=== PATIENT | male | born 1965 | race Two or more races ===

== ENCOUNTER 2019-03-29 11:04 | Emergency (ER) | payer MEDICAID, OTHER ==
[~2019-03-29] VITALS: Ht 167.6 cm; Wt 94.3 kg
[2019-03-29] MEDS ORDERED: SODIUM CHLORIDE 0.9% 1,000 ML IV ONE (11:16)
[2019-03-29 11:59] LABS: Basophils # (auto) 0.1 uL; Basophils % (auto) 0.7 % (0.0-2.0); Eosinophils # (auto) 0.3 uL; Eosinophils % (auto) 3.6 % (0.0-7.0); Hematocrit 41.6 % (41.0-53.0); Hemoglobin 14.4 g/dL (13.5-17.5); Lymphocytes # (auto) 3.7 uL; Lymphocytes % (auto) 39.2 % (10.0-50.0); Mean Corpuscular Hemoglobin 31.6 pg (28.0-32.0); Mean Corpuscular Hgb Conc. 34.5 g/dL (32.0-36.0); Mean Corpuscular Volume 91.8 fL (80.0-100.0); Monocytes # (auto) 0.7 uL; Monocytes % (auto) 7.6 % (0.0-12.0); Neutrophils # (auto) 4.6 uL; Neutrophils % (auto) 48.9 % (37.0-80.0); Nucleated Red Blood Cells % 0.2 %; Platelet Count (auto) 301 10^3/uL (140-450); Red Blood Cells 4.54 10^6/uL (4.5-5.90); Red Cell Distribution Width 12.7 % (11.8-14.3); White Blood Cell 9.3 10^3/uL (4.4-10.8)
[2019-03-29 12:29] LABS: Albumin 3.8 g/dL (3.4-5.0); Anion Gap 8 (5-15); Blood Urea Nitrogen 23 mg/dL (7-18); Calcium 8.9 mg/dL (8.5-10.1); Carbon Dioxide 28 mmol/L (21-32); Chloride 101 mmol/L (98-107); Glucose 274 mg/dL (74-106); Potassium 3.4 mmol/L (3.5-5.1); Sodium 137 mmol/L (136-145)
[2019-03-29 12:34] LABS: Alanine Aminotransferase 30 U/L (16-61); Alkaline Phosphatase 55 U/L (45-117); Aspartate Aminotransferase 10 U/L (15-37); BUN/Creatinine Ratio 24.7; Bilirubin, Total 0.4 mg/dL (0.2-1.0); GFR African American 108 mL/min; GFR Non-African American 90 mL/min; Total Protein 6.9 g/dL (6.4-8.2)
[2019-03-29 13:55] LABS: Urine Bacteria NONE SEEN /hpf (None Seen); Urine Blood Negative /uL (Negative); Urine Specific Gravity 1.032 (1.001-1.035); Urine WBC 1 /hpf (0 - 3)
[2019-03-29 14:48] VITALS: BP 123/74
== END 2019-03-29 14:56 | disposition home or self-care (01) ==
LOC: ER 11:04
DX: E11.65 Type 2 diabetes mellitus with hyperglycemia (principal); E78.5 Hyperlipidemia, unspecified
CPT/HCPCS: 36415; 80053; 81001; 82962; 83036; 84484; 85025; 93005; 94761; 99284; J7030

== ENCOUNTER 2020-01-23 00:01 | Inpatient (IN) | payer MEDICAID ==
[~2020-01-23] VITALS: Ht 165.1 cm; Wt 93.2 kg
[2020-01-23 00:50] LABS: Basophils # (auto) 0.1 uL; Basophils % (auto) 0.9 % (0.0-2.0); Eosinophils # (auto) 0.2 uL; Eosinophils % (auto) 3.4 % (0.0-7.0); Hematocrit 43.7 % (41.0-53.0); Hemoglobin 14.8 g/dL (13.5-17.5); Lymphocytes # (auto) 2.9 uL; Lymphocytes % (auto) 42.3 % (10.0-50.0); Mean Corpuscular Hemoglobin 31.4 pg (28.0-32.0); Mean Corpuscular Hgb Conc. 33.8 g/dL (32.0-36.0); Monocytes # (auto) 0.7 uL; Monocytes % (auto) 9.9 % (0.0-12.0); Neutrophils % (auto) 43.5 % (37.0-80.0); Nucleated Red Blood Cells % 0.1 %; Platelet Count (auto) 251 10^3/uL (140-450); Red Cell Distribution Width 13.1 % (11.8-14.3); White Blood Cell 6.9 10^3/uL (4.4-10.8)
[2020-01-23 01:07] LABS: Alanine Aminotransferase 28 U/L (16-61); Albumin 3.7 g/dL (3.4-5.0); Anion Gap 6 (5-15); Aspartate Aminotransferase 12 U/L (15-37); BUN/Creatinine Ratio 23.6; Blood Urea Nitrogen 17 mg/dL (7-18); Calcium 8.6 mg/dL (8.5-10.1); Carbon Dioxide 25 mmol/L (21-32); Chloride 107 mmol/L (98-107); GFR African American 146 mL/min; GFR Non-African American 120 mL/min; Glucose 135 mg/dL (74-106); Potassium 3.4 mmol/L (3.5-5.1); Sodium 138 mmol/L (136-145)
[2020-01-23 01:15] LABS: Alkaline Phosphatase 60 U/L (45-117); Bilirubin, Total 0.3 mg/dL (0.2-1.0); Total Protein 7.2 g/dL (6.4-8.2)
[2020-01-23] MEDS ORDERED: SODIUM CHLORIDE 0.9% 500 ML IV ONE (02:45)
[2020-01-23 03:25] LABS: INR 1.22 (0.9-1.15); Partial Thromboplastin Time 28.6 sec (23.64-32.05)
[2020-01-23] MEDS ORDERED: DIGOXIN (250MCG/ML) 2 ML AMPULE IV ONE (03:45)
[2020-01-23] MEDS ORDERED: SODIUM CHLORIDE 0.9% 1,000 ML IV SCH (07:59)
[2020-01-23] MEDS ORDERED: NITROGLYCERIN 0.4 MG SL TAB SL PRN (08:00)
[2020-01-23] MEDS: InsuLIN REG 1unit/0.01ml Soln (100units/ml) SC SCH ×5 (08:00→23:51)
[2020-01-23] MEDS ORDERED: MORPHINE SULF INJ 2 MG/ML SYRINGE 1ML IV PRN (08:00)
[2020-01-23] MEDS ORDERED: DEXTROSE (50%) 50ML SYRG IV PRN (08:00)
[2020-01-23 08:33] LABS: Cholesterol 97 mg/dL (< 200)
[2020-01-23 08:36] LABS: HDL Cholesterol 37 mg/dL (40-59); LDL Cholesterol 50 mg/dL (< 100); Triglycerides 95 mg/dL (< 150)
[2020-01-23] MEDS: ACCU-CHEK COMFORT CURVE STRIP VI SCH ×5 (08:44→23:51)
[2020-01-23 12:25] VITALS: BP 121/82
[2020-01-23] MEDS: METOPROLOL TARTRATE 25 MG TAB PO SCH ×2 (13:13→22:20)
[2020-01-23] MEDS ORDERED: METF-370 PO (19:08)
[2020-01-23] MEDS ORDERED: ATOR20TA50 PO (19:08)
[2020-01-23] MEDS ORDERED: ALOG1TAB2 PO (19:10)
[2020-01-23] MEDS ORDERED: ASPI-492 PO (19:10)
[2020-01-23] MEDS ORDERED: MAGNESIUM SULFATE 1GM/100ML 100 ML IV ONE (20:30)
[2020-01-23] MEDS ORDERED: POTASSIUM CHL 20MEQ/100ML 100 ML IV ONE (20:30)
[2020-01-23 22:00] VITALS: BP 112/65
[2020-01-23] MEDS: SODIUM CHLORIDE 0.9% 1,000 ML IV SCH (22:14)
[2020-01-23] MEDS: ENOXAPARIN SOD 100 MG/1 ML SYRINGE SC SCH (22:21)
[2020-01-24] MEDS: InsuLIN REG 1unit/0.01ml Soln (100units/ml) SC SCH ×4 (04:00→16:00)
[2020-01-24] MEDS: ACCU-CHEK COMFORT CURVE STRIP VI SCH ×4 (04:29→16:00)
[2020-01-24 05:37] VITALS: BP 102/70
[2020-01-24] MEDS: SODIUM CHLORIDE 0.9% 1,000 ML IV SCH ×2 (05:44→13:04)
[2020-01-24 07:36] LABS: Basophils # (auto) 0 10 ^3/uL (0-0.2); Basophils % (auto) 0.6 % (0.0-2.0); Eosinophils # (auto) 0.1 10 ^3/uL (0-0.8); Eosinophils % (auto) 2.9 % (0.0-7.0); Hematocrit 38.7 % (41.0-53.0); Hemoglobin 13.5 g/dL (13.5-17.5); Lymphocytes % (auto) 39.8 % (10.0-50.0); Mean Corpuscular Hemoglobin 32.6 pg (28.0-32.0); Mean Corpuscular Hgb Conc. 34.8 g/dL (32.0-36.0); Mean Corpuscular Volume 93.8 fL (80.0-100.0); Monocytes # (auto) 0.5 10 ^3/uL (0-1.3); Neutrophils # (auto) 2.3 10 ^3/uL (1.6-8.6); Neutrophils % (auto) 46.7 % (37.0-80.0); Nucleated Red Blood Cells % 0.1 %; Platelet Count (auto) 212 10^3/uL (140-450); Red Blood Cells 4.13 10^6/uL (4.5-5.90); White Blood Cell 4.9 10^3/uL (4.4-10.8)
[2020-01-24 07:55] LABS: BUN/Creatinine Ratio 19.7; Calcium 8.1 mg/dL (8.5-10.1)
[2020-01-24] MEDS ORDERED: ADENOSINE 78 MG in GIVE UN-DILUTED 0 ML IV STA (08:39)
[2020-01-24 09:00] VITALS: BP 106/64
[2020-01-24] MEDS: ENOXAPARIN SOD 100 MG/1 ML SYRINGE SC SCH (10:00)
[2020-01-24] MEDS ORDERED: ASPirin-EC 81 mg tab PO SCH (10:00)
[2020-01-24] MEDS ORDERED: ATORVASTATIN 20 MG TAB PO SCH (10:00)
[2020-01-24] MEDS ORDERED: PANTOPRAZOLE 40 MG/10 ML VIAL INJ IV SCH (10:00)
[2020-01-24 12:10] VITALS: BP 119/62
[2020-01-24] MEDS: METOPROLOL TARTRATE 25 MG TAB PO SCH (13:02)
[2020-01-24 17:00] VITALS: BP 110/56
[2020-01-24] MEDS ORDERED: RIVSET PO (18:07)
[2020-01-24] MEDS ORDERED: METO25TA36 PO (18:07)
[2020-01-24 18:34] VITALS: BP 110/56
== END 2020-01-24 19:00 | disposition home or self-care (01) | DRG 201 ==
LOC: ER 00:02 → TELE 00:03 → TELE-CENTR 10:28
PROVIDERS: ADMIT Hospitalist; ATTEND Internal Medicine
DX: I48.0 Paroxysmal atrial fibrillation (principal); E11.65 Type 2 diabetes mellitus with hyperglycemia; I11.9 Hypertensive heart disease without heart failure; E66.9 Obesity, unspecified; E78.5 Hyperlipidemia, unspecified; E87.6 Hypokalemia; Z68.34 Body mass index [BMI] 34.0-34.9, adult; Z79.01 Long term (current) use of anticoagulants
CPT/HCPCS: 36415; 71045; 78452; 80048; 80053; 80061; 82962; 83036; 83735; 83880; 84484; 85025; 85610; 85730; 93005; 93017; 93306; 96361; 96374; G0378; J0153; J1815; J3480

== ENCOUNTER 2023-09-28 15:23 | Emergency (ER) | payer MEDICAID ==
[~2023-09-28] VITALS: Ht 167.6 cm; Wt 92.2 kg
[~2023-09-28 15:23] MED LIST: ALOG1TAB2 PO; ASPI-492 PO; ATOR20TA50 PO; CEPH500C PO; METF-370 PO; METO25TA36 PO; RIVSET PO
[2023-09-28 16:28] LABS: Basophils # (auto) 0 10 ^3/uL (0-0.2); Basophils % (auto) 0.6 % (0.0-2.0); Eosinophils # (auto) 0.2 10 ^3/uL (0-0.8); Eosinophils % (auto) 2.3 % (0.0-7.0); Hematocrit 41.8 % (41.0-53.0); Hemoglobin 14.1 g/dL (13.5-17.5); Lymphocytes # (auto) 1.5 10 ^3/uL (0.4-5.4); Lymphocytes % (auto) 21.2 % (10.0-50.0); Mean Corpuscular Hemoglobin 31.6 pg (28.0-32.0); Mean Corpuscular Hgb Conc. 33.9 g/dL (32.0-36.0); Mean Corpuscular Volume 93.2 fL (80.0-100.0); Monocytes # (auto) 0.4 10 ^3/uL (0-1.3); Monocytes % (auto) 5.5 % (0.0-12.0); Neutrophils # (auto) 4.9 10 ^3/uL (1.6-8.6); Neutrophils % (auto) 70.4 % (37.0-80.0); Nucleated Red Blood Cells % 0.1 %; Red Blood Cells 4.48 10^6/uL (4.5-5.90); Red Cell Distribution Width 12.9 % (11.8-14.3)
[2023-09-28 16:43] LABS: Alanine Aminotransferase 26 U/L (7-40); Albumin 4.7 g/dL (3.2-4.8); Alkaline Phosphatase 70 U/L (46-116); Anion Gap 8 (5-15); Aspartate Aminotransferase 16 U/L (13-40); BUN/Creatinine Ratio 9.6 (10.0-20.0); Bilirubin, Total 0.4 mg/dL (0.2-1.0); Blood Urea Nitrogen 9 mg/dL (9-23); Calcium 9.5 mg/dL (8.7-10.4); Carbon Dioxide 27 mmol/L (20-30); Chloride 104 mmol/L (98-107); Glucose 262 mg/dL (74-106); Potassium 4.3 mmol/L (3.5-5.1); Sodium 139 mmol/L (136-145); Total Protein 7.2 g/dL (5.7-8.2)
[2023-09-28 17:07] LABS: Urine WBC None Seen /hpf (0 - 3)
[2023-09-28 17:22] LABS: Urine Bacteria NONE SEEN /hpf (None Seen); Urine Blood Negative /uL (Negative); Urine Clarity Clear (Clear); Urine Color Yellow (Yellow); Urine Protein, UAD Negative (Negative); Urine Specific Gravity 1.022 (1.001-1.035); Urine Urobilinogen Normal (Negative)
[2023-09-28] MEDS ORDERED: FLEET ENEMA(ADULT) 135 ML PR ONE (17:30)
[2023-09-28] MEDS ORDERED: BISACODYL 10 MG RECT SUPP PR ONE (17:30)
[2023-09-28 22:25] VITALS: BP 108/59; PULSE 81; RESP 13; TEMP 98.7; O2SAT 98
== END 2023-09-28 22:30 | disposition home or self-care (01) ==
LOC: ER 15:23
DX: K59.00 Constipation, unspecified (principal); K62.89 Other specified diseases of anus and rectum; E11.9 Type 2 diabetes mellitus without complications; Z79.82 Long term (current) use of aspirin; Z79.84 Long term (current) use of oral hypoglycemic drugs; Z79.899 Other long term (current) drug therapy
CPT/HCPCS: 36415; 74176; 80053; 81001; 85025

== ENCOUNTER 2024-01-15 07:41 | Day surgery (SDC) | payer MEDICAID ==
[2024-01-08 09:00] LABS: Basophils # (auto) 0.1 10 ^3/uL (0-0.2); Basophils % (auto) 0.8 % (0.0-2.0); Eosinophils # (auto) 0.1 10 ^3/uL (0-0.8); Eosinophils % (auto) 2.3 % (0.0-7.0); Hematocrit 40.3 % (41.0-53.0); Hemoglobin 13.4 g/dL (13.5-17.5); Lymphocytes # (auto) 1.8 10 ^3/uL (0.4-5.4); Lymphocytes % (auto) 27.8 % (10.0-50.0); Mean Corpuscular Hemoglobin 30.8 pg (28.0-32.0); Mean Corpuscular Hgb Conc. 33.2 g/dL (32.0-36.0); Mean Corpuscular Volume 92.9 fL (80.0-100.0); Monocytes # (auto) 0.5 10 ^3/uL (0-1.3); Monocytes % (auto) 8.6 % (0.0-12.0); Neutrophils # (auto) 3.8 10 ^3/uL (1.6-8.6); Neutrophils % (auto) 60.5 % (37.0-80.0); Nucleated Red Blood Cells % 0.1 %; Red Blood Cells 4.34 10^6/uL (4.5-5.90); Red Cell Distribution Width 12.8 % (11.8-14.3); White Blood Cell 6.3 10^3/uL (4.4-10.8)
[2024-01-08 09:14] LABS: Urine Bacteria NONE SEEN /hpf (None Seen); Urine Blood Negative /uL (Negative); Urine Clarity Clear (Clear); Urine Color Yellow (Yellow); Urine Protein, UAD Negative (Negative); Urine Specific Gravity 1.015 (1.001-1.035); Urine Urobilinogen Normal (Negative); Urine WBC <1 /hpf (0 - 3)
[2024-01-08 09:16] LABS: INR 1.46 (0.9-1.15); Partial Thromboplastin Time 37.8 SEC (24.5-34.5)
[2024-01-08 09:51] LABS: Alanine Aminotransferase 24 U/L (7-40); Albumin 4.4 g/dL (3.2-4.8); Alkaline Phosphatase 53 U/L (46-116); Anion Gap 6 (5-15); Aspartate Aminotransferase 15 U/L (13-40); BUN/Creatinine Ratio 10.4 (10.0-20.0); Bilirubin, Total 0.4 mg/dL (0.2-1.0); Blood Urea Nitrogen 8 mg/dL (9-23); Calcium 9.7 mg/dL (8.5-10.1); Carbon Dioxide 30 mmol/L (20-30); Chloride 103 mmol/L (98-107); Glucose 147 mg/dL (74-106); Potassium 4.3 mmol/L (3.5-5.1); Sodium 139 mmol/L (136-145); Total Protein 6.3 g/dL (5.7-8.2)
[~2024-01-15] VITALS: Ht 165.1 cm; Wt 95.3 kg
[~2024-01-15 07:41] MED LIST changes: -ASPI-492 PO; -ATOR20TA50 PO; +ATOR40TA52 PO; -CEPH500C PO; +FAMO20TA10 PO; +LISI2.5T47 PO; -METF-370 PO; +METF-372 PO; +METO-289 PO; -METO25TA36 PO
[2024-01-15] MEDS ORDERED: PROPOFOL 10 MG/ML 20 ML IV ONE (09:24)
[2024-01-15 09:43] VITALS: TEMP 97.1; O2SAT 99
[2024-01-15 10:10] VITALS: BP 119/62; PULSE 76; RESP 12; O2SAT 98
== END 2024-01-15 10:35 | disposition home or self-care (01) ==
LOC: GI 07:41
PROVIDERS: ATTEND Internal Medicine Gastroenterology
DX: R10.32 Left lower quadrant pain (principal); K64.8 Other hemorrhoids; I10 Essential (primary) hypertension; E11.9 Type 2 diabetes mellitus without complications; I25.10 Atherosclerotic heart disease of native coronary artery without angina pectoris; Z79.899 Other long term (current) drug therapy; Z79.84 Long term (current) use of oral hypoglycemic drugs
CPT/HCPCS: 36415; 45378; 80053; 81001; 85025; 85610; 85730; J2704; J7030

== ENCOUNTER 2025-04-05 12:48 | Inpatient (IN) | payer MEDICAID ==
[~2025-04-05] VITALS: Ht 170.2 cm; Wt 103.2 kg
--- NOTE | 2025-04-05 13:19 | ED.PDOC ---
History of Present Illness HPI Comments 60-year-old male presents with a chief complaint of chest pain and muscle pain x 6 months intermittently. Patient states that he has been having chest pain and pain to this left lower leg for the past six months since November 2024. Patient mentions that the pain was unbearable today that he had to use crutches to come to the ER. Patient denies any headache, SOB, or dizziness. Chief Complaint: Lower Extremity Time Seen by MD: 13:10 Primary Care Provider: none Reviewed Notes: Medications, Allergies Allergies: Coded Allergies: NO KNOWN ALLERGIES (Unverified , 03/29/19) Home Meds Active Scripts Rivaroxaban (Xarelto) 10 Mg Tab, 20 MG PO HS, #30 TAB Prov:MARISOL AVITIA MD 01/24/20 Reported Medications Lisinopril (Lisinopril) 2.5 Mg Tab, 5 MG PO DAILY, TAB 11/13/23 Famotidine (PEPCID TABLET) 20 Mg Tb, 20 MG PO DAILY, TAB 11/13/23 Metoprolol Succinate (Metoprolol Succinate Er) 50 Mg Tab, 50 MG PO DAILY, TAB 11/13/23 Atorvastatin Calcium (ATORVASTATIN CALCIUM) 40 Mg Tab, 40 MG PO DAILY, TAB 11/13/23 Metformin Hydrochloride (Metformin Hcl) 1,000 Mg Tab, 1000 MG PO BID, TAB 11/13/23 Alogliptin Benzoate (Alogliptin) 25 Mg Tab, 25 MG PO DAILY, TAB 01/23/20 Information Source: Patient Mode of Arrival: Wheelchair Severity: Moderate Timing: Months Duration: Intermittent Prehospital treatment: None Past Medical History PAST MEDICAL HISTORY: DM, High Lipids Surgical History: Denies all surgeries Family History Family History: Reviewed,noncontributory to illness Social History Smoker: Non-Smoker Alcohol: Occasionally Drugs: Denies Drug Use Lives In: Home Constitutional: denies: chills, diaphoresis, fatigue, fever, malaise, sweats, weakness, others EENTM: denies: blurred vision, double vision, ear bleeding, ear discharge, ear drainage, ear pain, ear ringing, eye pain, eye redness, hearing loss, mouth pain, mouth swelling, nasal discharge, nose bleeding, nose congestion, nose pain, photophobia, tearing, throat pain, throat swelling, voice changes, others Respiratory: denies: cough, hemoptysis, orthopnea, SOB at rest, shortness of breath, SOB with excertion, stridor, wheezing, others Cardiovascular: reports: chest pain; denies: dizzy spells, diaphoresis, Dyspnea on exertion, edema, irregular heart beat, left arm pain, lightheadedness, palpitations, PND, syncope, others Gastrointestinal: denies: abdomen distended, abdominal pain, blood streaked bowels, constipated, diarrhea, dysphagia, difficulty swallowing, hematemesis, melena, nausea, poor appetite, poor fluid intake, rectal bleeding, rectal pain, vomiting, others Genitourinary: denies: burning, dysuria, flank pain, frequency, hematuria, incontinence, penile discharge, penile sore, pain, testicle pain, testicle swelling, urgency, others Neurological: denies: dizziness, fainting, headache, left sided numbness, left sided weakness, numbness, paresthesia, pre-existing deficit, right sided numbness, right sided weakness, seizure, speech problems, tingling, tremors, weakness, others Musculoskeletal: reports: muscle pain; denies: back pain, gout, joint pain, joint swelling, muscle stiffness, neck pain, others Integumetry: denies: bruises, change in color, change in hair/nails, dryness, laceration, lesions, lumps, rash, wounds, others Allergic/Immunocompromised: denies: Difficulty Healing, Frequent Infections, Hives, Itching, others Hematologic/Lymphatic: denies: anemia, blood clots, easy bleeding, easy bruising, swollen glands, others Endocrine: denies: excessive hunger, excessive sweating, excessive thirst, excessive urination, flushing, intolerance to cold, intolerance to heat, unexplained weight gain, unexplained weight loss, others Psychiatric: denies: anxiety, bipolar disorder, depression, hopeless, panic disorder, schizophrenia, sleepless, suicidal, others All Other Systems: Reviewed and Negative Physical Exam General Appearance: Moderate Distress, Normal HEENT: Normal ENT Inspection, Pharynx Normal, TMs Normal Neck: Full Range of Motion, Non-Tender, Normal, Normal Inspection Respiratory: Chest Non-Tender, Lungs Clear, No Accessory Muscle Use, No Respiratory Distress, Normal Breath Sounds Cardiovascular: No Edema, No JVD, No Murmur, No Gallop, Normal Peripheral Pulses, Regular Rate/Rhythm Breast Exam: Deferred Gastrointestinal: No Organomegaly, Non Tender, No Pulsatile Mass, Normal Bowel Sounds, Soft Genitalia: Deferred Pelvic: Deferred Rectal: Deferred Extremities: No calf tenderness, Normal capillary refill, Normal inspection, Normal range of motion, Non-tender, No pedal edema Musculoskeletal : Apperance: Normal Neurologic: Alert, therapist phys II-XII nml as Tested, No Motor Deficits, Normal Affect, Normal Mood, No Sensory Deficits Cerebellar Function: Normal Reflexes: Normal Skin: Dry, Normal Color, Warm Peripheral Pulses: 3+ Radial (R), 3+ Radial (L) Lymphatic: No Adenopathy Was a procedure done? Was a procedure done?: No Differential Dx Considerations may include: Anemia Electrolyte imbalance X-Ray, Labs, Meds, VS Vital Signs Date Time Temp Pulse Resp B/P (MAP) Pulse Ox O2 Delivery O2 Flow Rate FiO2 04/05/25 13:35 99.0 72 20 96/62 (73) 96 99.0 04/05/25 13:08 72 04/05/25 13:01 98.2 72 17 107/78 (88) 95 98.2 Lab Test 04/05/25 13:59 04/05/25 13:13 Range/Units Troponin I High Sensitivity 3 L < 3 L </=54 ng/L White Blood Count 14.4 H 4.4-10.8 10^3/uL Red Blood Count 5.35 4.5-5.90 10^6/uL Hemoglobin 16.4 13.5-17.5 g/dL Hematocrit 48.7 41.0-53.0 % Mean Corpuscular Volume 91.0 80.0-100.0 fL Mean Corpuscular Hemoglobin 30.7 28.0-32.0 pg Mean Corpuscular Hemoglobin Concent 33.8 32.0-36.0 g/dL Red Cell Distribution Width 14.1 11.8-14.3 % Platelet Count 302 140-450 10^3/uL Mean Platelet Volume 7.8 6.9-10.8 fL Neutrophils (%) (Auto) 73.8 37.0-80.0 % Lymphocytes (%) (Auto) 18.4 10.0-50.0 % Monocytes (%) (Auto) 6.6 0.0-12.0 % Eosinophils (%) (Auto) 0.8 0.0-7.0 % Basophils (%) (Auto) 0.4 0.0-2.0 % Neutrophils # (Auto) 10.7 H 1.6-8.6 10 ^3/uL Lymphocytes # (Auto) 2.6 0.4-5.4 10 ^3/uL Monocytes # (Auto) 1.0 0-1.3 10 ^3/uL Eosinophils # (Auto) 0.1 0-0.8 10 ^3/uL Basophils # (Auto) 0.1 0-0.2 10 ^3/uL Nucleated Red Blood Cells 0.1 % Sodium Level 141 136-145 mmol/L Potassium Level 4.1 3.5-5.1 mmol/L Chloride Level 108 H 98-107 mmol/L Carbon Dioxide Level 25 20-31 mmol/L Anion Gap 8 5-15 Blood Urea Nitrogen 19 9-23 mg/dL Creatinine 1.18 0.700-1.30 mg/dL Glomerular Filtration Rate Calc 70 >90 mL/min BUN/Creatinine Ratio 16.1 10.0-20.0 Serum Glucose 90 74-106 mg/dL Calcium Level 10.1 8.7-10.4 mg/dL Patient alert. Complaining of chest pain extremity pain. Vitals stable. Answering all questions. Cardiac marker within normal limits. WBC is elevated. Hemoglobin within normal limits. Hypotensive. Establish intravenous access. Was given fluids. He does have mild fever. Abdomen is soft nontender. EKG reviewed does not show any acute changes. Time of 1ST Reevaluation: 13:10 (EXPLAINED TO THE PATIENT THAT THEY MAY BE STAYING WITH US IN THE HOSPITAL, BUT IF STABLE FOR DISCHARGE, THEY WILL BE NOTIFIED AND SENT HOME. ) Reevaluation 1ST: Unchanged Time of 2ND Reevaluation: 13:40 Reevaluation 2ND: Unchanged Patient Education/Counseling: Diagnosis, Treatment Family Education/Counseling: No Family Present Departure 1 Departure Time of Disposition: 13:51 Impression: Primary Impression: Chest pain of unknown etiology Disposition: ADMITTED INPATIENT Admit to: Med Surg Condition: Guarded Critical Care Note Critical Care Time?: No Stability Stability form required: No Heart Score Heart Score: Heart Score Response (Comments) Value History Slightly Suspicious 0 EKG Normal 0 Age 45-64 1 Risk Factors 1 or 2 risk factors 1 Troponin Normal limit 0 Total 2 I personally scribed for ALYSSA GARIBAY MD ([email or web address]) on 04/05/25 at 13:19. Electronically submitted by Bret Plaza ([email or web address]). ALYSSA GARIBAY MD April 05, 2025 13:19
[2025-04-05 13:25] LABS: Basophils # (auto) 0.1 10 ^3/uL (0-0.2); Basophils % (auto) 0.4 % (0.0-2.0); Eosinophils # (auto) 0.1 10 ^3/uL (0-0.8); Eosinophils % (auto) 0.8 % (0.0-7.0); Hematocrit 48.7 % (41.0-53.0); Hemoglobin 16.4 g/dL (13.5-17.5); Lymphocytes # (auto) 2.6 10 ^3/uL (0.4-5.4); Lymphocytes % (auto) 18.4 % (10.0-50.0); Mean Corpuscular Hemoglobin 30.7 pg (28.0-32.0); Mean Corpuscular Hgb Conc. 33.8 g/dL (32.0-36.0); Monocytes % (auto) 6.6 % (0.0-12.0); Neutrophils # (auto) 10.7 10 ^3/uL (1.6-8.6); Neutrophils % (auto) 73.8 % (37.0-80.0); Nucleated Red Blood Cells % 0.1 %; Platelet Count (auto) 302 10^3/uL (140-450); Red Blood Cells 5.35 10^6/uL (4.5-5.90); Red Cell Distribution Width 14.1 % (11.8-14.3); White Blood Cell 14.4 10^3/uL (4.4-10.8)
--- NOTE | 2025-04-05 13:34 | ECG ---
[facility] Test Date: 2025-04-05 Test Time: 13:08:47 Pat Name: ANN-MARIE HARDING Department: ER Room: [address] [place] [address] Gender: M [employer]: ENDY : 1964-10-30 Requested By: ALYSSA GARIBAY Order Number: [id number] Reading MD: Chadd Malik Measurements Intervals [place] Rate: 72 P: 33 UT: 163 QRS: -26 QRSD: 101 T: 16 QT: 382 QTc: 419 Interpretive Statements Sinus rhythm Probable left atrial enlargement Borderline left axis deviation Low voltage, precordial leads RSR' in V1 or V2, right VCD or RVH Borderline ST elevation, lateral leads Electronically Signed On 04-06-2025 12:48:31 PDT by Chadd Malik Please click the below link to view image of tracing.
[2025-04-05 13:38] LABS: Potassium 4.1 mmol/L (3.5-5.1); Sodium 141 mmol/L (136-145)
[2025-04-05 13:39] LABS: Anion Gap 8 (5-15); Calcium 10.1 mg/dL (8.7-10.4); Carbon Dioxide 25 mmol/L (20-31); Chloride 108 mmol/L (98-107)
[2025-04-05 13:44] LABS: BUN/Creatinine Ratio 16.1 (10.0-20.0); Blood Urea Nitrogen 19 mg/dL (9-23); Glucose 90 mg/dL (74-106)
--- NOTE | 2025-04-05 14:25 | DVH ---
EXAM: XY CHEST PORTABLE HISTORY: sob COMPARISON: CHEST PORTABLE on DOS: 01/22/20 TECHNIQUE: Portable upright AP view of the chest was performed. FINDINGS: No pneumothorax, consolidative infiltrates, or pulmonary edema. There is mild elevation of the right hemidiaphragm. The heart is borderline enlarged. There is thoracic degenerative disc disease. There i s right glenohumeral osteoarthritis. IMPRESSION: 1. No acute intrathoracic process. 2. Mild elevation of the right hemidiaphragm.
[2025-04-05] MEDS ORDERED: DEXTROSE (50%) 50ML SYRG IV PRN (16:45)
[2025-04-05] MEDS ORDERED: hydrALAZINE HCL 20 MG/ML VL IV PRN (16:45)
[2025-04-05] MEDS ORDERED: ONDANSETRON HCL 4 MG/2 ML VIAL IV PRN (16:45)
[2025-04-05] MEDS: InsuLIN REG 1unit/0.01ml Soln (100units/ml) SC SCH (17:00)
[2025-04-05] MEDS: ACCU-CHEK COMFORT CURVE STRIP VI SCH (17:00)
[2025-04-05] MEDS ORDERED: MORPHINE SULFATE INJ 2 MG/ml SYRG IV PRN (17:45)
[2025-04-05] MEDS ORDERED: NITROGLYCERIN 0.4 MG SL TAB SL PRN (17:45)
--- NOTE | 2025-04-05 17:48 | DVHHP2 ---
History of Present Illness Reason for Visit: Chest pain of unknown etiology History of Present Illness The patient is a 60-year-old male with past medical history of hyperlipidemia, diabetes mellitus, and hypertension who presented to [facility] ED with complaint of chest pain and muscle pain intermittently for the past 6 months. Patient reports symptoms progressively get worse with radiating chest pain to the left shoulder, left hand, to his left leg, associated weakness, getting worse that prompted this visit. Patient was seen and evaluated in the ED, laboratory data shows WBC 14.4, platelets 302, sodium 141, potassium 4.1, BUN 19, creatinine 1.18, glucose 90, troponin < 3, blood pressure 96/82, heart rate 72, temperature 99.0 F, O2 saturation 96% on room air. Please see medication orders section in the computer. On my assessment, patient denied chest pain at this moment, no headache, no dizziness, no diaphoresis, no shortness of breaths, no nausea, no vomiting, no fever, no chills. Patient was admitted for further evaluation and medical management. Past Medical History DM, High Lipids, HTN Past Surgical History Denies all surgeries Family History Reviewed, noncontributory to the management of this case. Past Social History The patient lives at home, denies smoking, alcohol or illicit drugs abuse. Review of Systems Constitutional: Yes: Weakness; No: Fever, Chills, Sweats, Malaise, Other Eyes: No: Pain, Vision change, Conjunctivae inflammation, Eyelid inflammation, Other, Redness ENT: No: Ear pain, Ear discharge, Nose pain, Nose discharge, Nose congestion, Mouth pain, Mouth swelling, Throat pain, Throat swelling, Other Respiratory: No: Cough, Dry, Shortness of breath, SOB with excertion, Wheezing, Hemoptysis, Pleuritic Pain, Sputum, Wheezing, Other Cardiovascular: Chest Pain; No: Palpitations, Orthopnea, Paroxysmal Noc. Dyspnea, Edema, Lt Headedness, Other Gastrointestinal: No: Nausea, Vomiting, Abdominal Pain, Diarrhea, Constipation, Melena, Hematochezia, Other Genitourinary: No Dysuria, No Frequency, No Incontinence, No Hematuria, No Rete ntion, No Other Musculoskeletal: shoulder pain; No: other, neck pain, arm pain, back pain, hand pain, leg pain, foot pain Skin: No: Rash, Lesions, Jaundice, Bruising, Other Neurological: No: Weakness, Numbness, Incoordination, Change in speech, Confusion, Seizures, Other Allergies: Coded Allergies: NO KNOWN ALLERGIES (Unverified , 03/29/19) Medications Current Medications Medications Dose Ordered Sig/Caio Route Start Time Stop Time Status Last Admin Dose Admin Aspirin 81 mg DAILY PO 04/06/25 10:00 Atorvastatin Calcium 20 mg HS PO 04/05/25 22:00 Hydralazine HCl 10 mg Q6HP PRN IV 04/05/25 16:45 Metoprolol Tartrate 25 mg BID PO 04/05/25 22:00 Famotidine 20 mg DAILY IV 04/06/25 10:00 Diagnostic Test (Pha) 1 strip ACHS 04/05/25 17:00 Insulin Human Regular ACHS SC 04/05/25 17:00 Dextrose 50 ml UD PRN IV 04/05/25 16:45 Sodium Chloride 10 ml Q8HR IV 04/05/25 22:00 Acetaminophen/ Hydrocodone Bitart 1 tab Q4HP PRN PO 04/05/25 16:45 Ondansetron HCl 4 mg Q4HP PRN IV 04/05/25 16:45 Docusate Sodium 100 mg BIDPRN PRN PO 04/05/25 16:45 Acetaminophen 650 mg Q6HP PRN PO 04/05/25 16:45 Ceftriaxone Sodium 50 ml @ 100 mls/hr DAILY@09 IV 04/06/25 09:00 Exam Vital Signs Vital Signs Date Time Temp Pulse Resp B/P (MAP) Pulse Ox O2 Delivery O2 Flow Rate FiO2 04/05/25 13:35 99.0 72 20 96/62 (73) 96 99.0 General Appearance: Alert, Oriented X3, Cooperative, No acute distress HEENT: Atraumatic, PERRLA, EOMI, Mucous membr. moist/pink Respiratory: Normal air movement Cardiovascular: Regular rate, Normal S1, Normal S2, No murmurs Abdominal: Normal bowel sounds, Soft, No tenderness, No hepatospenomegaly, No masses Extremities: No clubbing, No cyanosis, No edema, Normal pulses, No tenderness/swelling Skin: No rashes, No breakdown, No significant lesion Neuro: Normal speech, Normal tone, Sensation intact, Cranial nerves 3-12 NL, Reflexes 2+, Other (Generalized weakness) Psych/Mental Status: Mental status NL, Mood NL Labs/Xrays Labs Test 04/05/25 13:59 04/05/25 13:13 Range/Units Troponin I High Sensitivity 3 L </=54 ng/L White Blood Count 14.4 H 4.4-10.8 10^3/uL Red Blood Count 5.35 4.5-5.90 10^6/uL Hemoglobin 16.4 13.5-17.5 g/dL Hematocrit 48.7 41.0-53.0 % Mean Corpuscular Volume 91.0 80.0-100.0 fL Mean Corpuscular Hemoglobin 30.7 28.0-32.0 pg Mean Corpuscular Hemoglobin Concent 33.8 32.0-36.0 g/dL Red Cell Distribution Width 14.1 11.8-14.3 % Platelet Count 302 140-450 10^3/uL Mean Platelet Volume 7.8 6.9-10.8 fL Neutrophils (%) (Auto) 73.8 37.0-80.0 % Lymphocytes (%) (Auto) 18.4 10.0-50.0 % Monocytes (%) (Auto) 6.6 0.0-12.0 % Eosinophils (%) (Auto) 0.8 0.0-7.0 % Basophils (%) (Auto) 0.4 0.0-2.0 % Neutrophils # (Auto) 10.7 H 1.6-8.6 10 ^3/uL Lymphocytes # (Auto) 2.6 0.4-5.4 10 ^3/uL Monocytes # (Auto) 1.0 0-1.3 10 ^3/uL Eosinophils # (Auto) 0.1 0-0.8 10 ^3/uL Basophils # (Auto) 0.1 0-0.2 10 ^3/uL Nucleated Red Blood Cells 0.1 % Sodium Level 141 136-145 mmol/L Potassium Level 4.1 3.5-5.1 mmol/L Chloride Level 108 H 98-107 mmol/L Carbon Dioxide Level 25 20-31 mmol/L Anion Gap 8 5-15 Blood Urea Nitrogen 19 9-23 mg/dL Creatinine 1.18 0.700-1.30 mg/dL Glomerular Filtration Rate Calc 70 >90 mL/min BUN/Creatinine Ratio 16.1 10.0-20.0 Serum Glucose 90 74-106 mg/dL Calcium Level 10.1 8.7-10.4 mg/dL PATIENT: ANN-MARIE TONGACCT: [id number] UNIT: [id number] : 10/30/1964 LOC: ER ROOM / BED: / AGE / SEX: 60 / M ADM STATUS: REG ER SERVICE 1352 ORDERING PHYSICIAN: ALYSSA GARIBAY MD PROCEDURE(s): CXRP - CHEST PORTABLE REASON: sob ORDER NUMBER(s): [id number], ACCESSION NUMBER(s): [id number] EXAM: XY CHEST PORTABLE HISTORY: sob COMPARISON: CHEST PORTABLE on DOS: 01/22/20 TECHNIQUE: Portable upright AP view of the chest was performed. FINDINGS: No pneumothorax, consolidative infiltrates, or pulmonary edema. There is mild elevation of the right hemidiaphragm. The heart is borderline enlarged. There is thoracic degenerative disc disease. There is right glenohumeral osteoarthritis. IMPRESSION: 1. No acute intrathoracic process. 2. Mild elevation of the right hemidiaphragm. Assessment/Plan Assessment/Plan Chest pain of unknown etiology Generalized weakness Leukocytosis, unspecified Plan 1. Admit to telemetry unit 2. Breathing treatment 3. Pain control management 4. IV antibiotic management 5. Management of fluids and electrolytes 6. Consultation for hospitalist 7. Diagnostic test chest x-ray 8. DVT prophylaxis-on aspirin 9. Repeat labs CBC, CMP in a.m. 10. Home medication reviewed and reconciled 11. Continue with current medical management 12. Treatment plan discussed with patient and RN. Patient verbalized understanding. Plan discussed with: Patient, Other (RN) My Orders Orders - CHUCK BLANCO [facility] Procedure Category Date Status Time Aspirin Tablet PHA 04/06/25 In Process 10:00 Atorvastatin (Lipitor) PHA 04/05/25 In Process 22:00 Hydralazine Injection PHA 04/05/25 In Process (Apresoline Inject 16:45 Metoprolol Tartrate PHA 04/05/25 In Process Tablet (Lopressor Ta 22:00 Famotidine Injection PHA 04/06/25 In Process (Pepcid Injection) 10:00 Glucose Blood PHA 04/05/25 In Process (Accu-Chek Comfort 17:00 Insulin R (Human) PHA 04/05/25 In Process (Insulin R) 17:00 Dextrose 50% Syringe PHA 04/05/25 In Process 16:45 Allergies CHELSEA 04/05/25 In Process 16:45 Code Status CODE 04/05/25 Transmitted 16:45 Sodium Chloride Lock PHA 04/05/25 In Process (Saline Lock Ns) 22:00 Oxygen Per Hour RT 04/05/25 Transmitted 16:45 Hydrocodone-Acet PHA 04/05/25 In Process 5/325mg Tab ([place] 16:45 Ondansetron Hcl PHA 04/05/25 In Process (Zofran) 16:45 Docusate Sodium PHA 04/05/25 In Process Capsule (Colace 16:45 Complete Blood Count LAB 04/06/25 Verified 04:00 Comprehensive LAB 04/06/25 Verified Metabolic Panel 04:00 Cardiac DIET 04/05/25 Transmitted Diet-2gna,Lofat,Lochol Dinner Condition: Serious CHELSEA 04/05/25 In Process 16:45 Acetaminophen Tablet PHA 04/05/25 In Process (Tylenol Tablet) 16:45 Bedrest With Bathroom CHELSEA 04/05/25 In Process Privileg 16:45 Sequential CHELSEA 04/05/25 In Process Compression Device Blood Culture KIM 04/05/25 In Process 16:48 Ceftriaxone 1gm/50ml PHA 04/06/25 In Process D5w (Rocephin) 09:00 Admit ADMIT 04/05/25 Verified 17:43 Nitroglycerin PHA 04/05/25 Verified Sublingual (Ntrostat 17:45 Morphine Sulfate PHA 04/05/25 Verified Injection 17:45 Notify Md Of Changes CHELSEA 04/05/25 Verified From Base 17:43 Medical Physiologist For [facility] 04/05/25 Verified 24 Hours 17:43 Emergency Dysrhythmia [facility] 04/05/25 Verified Protocol 17:43 Rhythm Strips Once CHELSEA 04/05/25 Verified Every Shift 17:43 Oxygen By Nasal RT 04/05/25 Verified Cannula 17:43 Problem List: (1) Chest pain of unknown etiology (2) Generalized weakness (3) Leukocytosis, unspecified Date of Service: April 05, 2025 Billing Provider: CHUCK BLANCO DNP Common Visit Codes: [id number] INP/OBS CARE (HIGH) CHUCK BLANCO DNP April 05, 2025 17:48
[2025-04-06] VITALS (7 sets, daily range): BP systolic 113–126; BP diastolic 69–72; PULSE 68–93; RESP 6–20; TEMP 98.5–99.8; O2SAT 95–98
[2025-04-06] MEDS: METOPROLOL TARTRATE 25 MG TAB PO SCH (01:22)
[2025-04-06] MEDS: SODIUM CHLOR 0.9% PF (SALINE LOCK) 10ML VIAL/SYR IV SCH (01:39)
[2025-04-06] MEDS: HYDROcodone-ACET 5/325MG TAB PO PRN (01:40)
[2025-04-06] MEDS: ATORVASTATIN 20 MG TAB PO SCH (01:40)
[2025-04-06] MEDS: cefTRIAXone 1GM/50ML D5W 50 ML IV ONE (01:41)
[2025-04-06] MEDS: SODIUM CHLORIDE 0.9% 1,000 ML IV ONE (01:41)
[2025-04-06 06:59] LABS: Basophils # (auto) 0.1 10 ^3/uL (0-0.2); Basophils % (auto) 0.5 % (0.0-2.0); Eosinophils # (auto) 0 10 ^3/uL (0-0.8); Eosinophils % (auto) 0.3 % (0.0-7.0); Hematocrit 49.3 % (41.0-53.0); Hemoglobin 16.7 g/dL (13.5-17.5); Lymphocytes # (auto) 1.7 10 ^3/uL (0.4-5.4); Lymphocytes % (auto) 16.3 % (10.0-50.0); Mean Corpuscular Hemoglobin 30.8 pg (28.0-32.0); Mean Corpuscular Hgb Conc. 33.8 g/dL (32.0-36.0); Mean Corpuscular Volume 91.1 fL (80.0-100.0); Monocytes # (auto) 0.7 10 ^3/uL (0-1.3); Monocytes % (auto) 6.4 % (0.0-12.0); Neutrophils % (auto) 76.5 % (37.0-80.0); Nucleated Red Blood Cells % 0.1 %; Platelet Count (auto) 273 10^3/uL (140-450); Red Blood Cells 5.41 10^6/uL (4.5-5.90); Red Cell Distribution Width 14.6 % (11.8-14.3); White Blood Cell 10.4 10^3/uL (4.4-10.8)
[2025-04-06 07:14] LABS: Alanine Aminotransferase 32 U/L (7-40); Anion Gap 8 (5-15); Aspartate Aminotransferase 18 U/L (13-40); BUN/Creatinine Ratio 18.8 (10.0-20.0); Bilirubin, Total 0.8 mg/dL (0.2-1.0); Blood Urea Nitrogen 19 mg/dL (9-23); Calcium 10.3 mg/dL (8.7-10.4); Carbon Dioxide 26 mmol/L (20-31); Chloride 104 mmol/L (98-107); Glucose 92 mg/dL (74-106); Potassium 4.1 mmol/L (3.5-5.1); Sodium 138 mmol/L (136-145); Total Protein 7.6 g/dL (5.7-8.2)
[2025-04-06 07:17] LABS: Albumin 4.8 g/dL (3.2-4.8); Alkaline Phosphatase 128 U/L (46-116)
[2025-04-06] MEDS: cefTRIAXone 1GM/50ML D5W 50 ML IV SCH (09:54)
[2025-04-06] MEDS: ASPirin 81 mg TAB PO SCH (10:52)
[2025-04-06] MEDS: FAMOTIDINE (10MG/ML) 2ML VL IV SCH (10:53)
--- NOTE | 2025-04-06 18:39 | DVHPN2 ---
Subjective no chest pain Changes from previous H/P or p: No Changes Eyes: No Pain, No Vision change, No Conjunctivae inflammation, No Eyelid inflammation, No Other, No Redness ENT: No Ear pain, No Ear discharge, No Nose pain, No Nose discharge, No Nose congestion, No Mouth pain, No Mouth swelling, No Throat pain, No Throat swelling, No Other Cardiovascular: Chest Pain; No Palpitations, No Orthopnea, No Paroxysmal Noc. Dyspnea, No Edema, No Lt Headedness, No Other Respiratory: No Cough, No Dry, No Shortness of breath, No SOB with excertion, No Wheezing, No Hemoptysis, No Pleuritic Pain, No Sputum, No Other Gastrointestinal: No Nausea, No Vomiting, No Abdominal Pain, No Diarrhea, No Constipation, No Melena, No Hematochezia, No Other Genitourinary: No Dysuria, No Frequency, No Incontinence, No Hematuria, No Retention, No Other Musculoskeletal: No other, No neck pain; shoulder pain; No arm pain, No back pain, No hand pain, No leg pain, No foot pain Skin: No Rash, No Lesions, No Jaundice, No Bruising, No Other Objective Vitals Vital Signs Date Time Temp Pulse Resp B/P (MAP) Pulse Ox O2 Delivery O2 Flow Rate FiO2 04/06/25 17:40 98.7 80 6 126/70 (88) 98 98.7 04/06/25 07:20 Room Air* 0 21 Intake/Output Intake and Output 04/06/25 07:00 Intake Total 1050 ml Balance 1050 ml Intake IV Total 1050 ml General Appearance: Alert, Oriented X3 Lungs: Clear to auscultation Cardiovascular: Regular rate, Normal S1, Normal S2 Medications Current Medications Medications Dose Ordered Sig/Caio Route Start Time Stop Time Status Last Admin Dose Admin Aspirin 81 mg DAILY PO 04/06/25 10:00 04/06/25 10:52 81 MG Atorvastatin Calcium 20 mg HS PO 04/05/25 22:00 04/06/25 01:40 20 MG Hydralazine HCl 10 mg Q6HP PRN IV 04/05/25 16:45 Metoprolol Tartrate 25 mg BID PO 04/05/25 22:00 Famotidine 20 mg DAILY IV 04/06/25 10:00 04/06/25 10:53 20 MG Diagnostic Test (Pha) 1 strip ACHS 04/05/25 17:00 04/06/25 17:12 1 STRIP Insulin Human Regular ACHS SC 04/05/25 17:00 Dextrose 50 ml UD PRN IV 04/05/25 16:45 Sodium Chloride 10 ml Q8HR IV 04/05/25 22:00 04/06/25 14:00 10 ML Acetaminophen/ Hydrocodone Bitart 1 tab Q4HP PRN PO 04/05/25 16:45 04/06/25 07:35 1 TAB Ondansetron HCl 4 mg Q4HP PRN IV 04/05/25 16:45 Docusate Sodium 100 mg BIDPRN PRN PO 04/05/25 16:45 Acetaminophen 650 mg Q6HP PRN PO 04/05/25 16:45 Ceftriaxone Sodium 50 ml @ 100 mls/hr DAILY@09 IV 04/06/25 09:00 04/06/25 09:54 100 MLS/HR Nitroglycerin 0.4 mg Q5MINP PRN SL 04/05/25 17:45 Morphine Sulfate 2 mg Q30M PRN IV 04/05/25 17:45 Laboratory Results Laboratory Tests 04/06/25 06:40 Chemistry Test 04/06/25 06:40 Albumin 4.8 g/dL (3.2-4.8) Calcium Level 10.3 mg/dL (8.7-10.4) Total Protein 7.6 g/dL (5.7-8.2) LFT Test 04/06/25 06:40 Alanine Aminotransferase (ALT) 32 U/L (7-40) Alkaline Phosphatase 128 U/L (46-116) H Aspartate Amino Transferase (AST) 18 U/L (13-40) Total Bilirubin 0.8 mg/dL (0.2-1.0) Microbiology Microbiology Date/Time Source Procedure Growth Status 04/05/25 17:10 Blood Blood Culture - Preliminary NO GROWTH AFTER 24 HOURS OF INCUBATION. Resulted Assessment/Plan Assessment/Plan Chest pain of unknown etiology Generalized weakness Leukocytosis, unspecified Troponins negative obtain echo home medications monitor off abx Plan discussed with: Patient My Orders Orders - HEAVENLY FRY MD Procedure Category Date Status Time Echo With Contrast US 04/06/25 Logged 14:23 Date of Service: April 06, 2025 Billing Provider: HEAVENLY FRY MD Common Visit Codes: [id number] INP/OBS CARE(HIGH) HEAVENLY FRY MD April 06, 2025 18:39
[2025-04-06] MEDS: ACETAMINOPHEN 325 MG TAB PO PRN (23:47)
[2025-04-07] VITALS (9 sets, daily range): BP systolic 100–137; BP diastolic 66–80; PULSE 57–91; RESP 17–18; TEMP 97.5–99.8; O2SAT 94–100
[2025-04-07] MEDS: DOCUSATE SOD 100 MG CAP PO PRN (09:56)
--- NOTE | 2025-04-07 17:41 | DVHPN2 ---
Subjective no chest pain Changes from previous H/P or p: No Changes Eyes: No Pain, No Vision change, No Conjunctivae inflammation, No Eyelid inflammation, No Other, No Redness ENT: No Ear pain, No Ear discharge, No Nose pain, No Nose discharge, No Nose congestion, No Mouth pain, No Mouth swelling, No Throat pain, No Throat swelling, No Other Cardiovascular: Chest Pain; No Palpitations, No Orthopnea, No Paroxysmal Noc. Dyspnea, No Edema, No Lt Headedness, No Other Respiratory: No Cough, No Dry, No Shortness of breath, No SOB with excertion, No Wheezing, No Hemoptysis, No Pleuritic Pain, No Sputum, No Other Gastrointestinal: No Nausea, No Vomiting, No Abdominal Pain, No Diarrhea, No Constipation, No Melena, No Hematochezia, No Other Genitourinary: No Dysuria, No Frequency, No Incontinence, No Hematuria, No Retention, No Other Musculoskeletal: No other, No neck pain; shoulder pain; No arm pain, No back pain, No hand pain, No leg pain, No foot pain Skin: No Rash, No Lesions, No Jaundice, No Bruising, No Other Objective Vitals Vital Signs Date Time Temp Pulse Resp B/P (MAP) Pulse Ox O2 Delivery O2 Flow Rate FiO2 04/07/25 12:30 97.5 58 17 105/71 (82) 100 97.5 04/07/25 08:00 Nasal Cannula* 2 28 Intake/Output Intake and Output 04/07/25 07:00 Intake Total 200 ml Balance 200 ml Intake Oral 200 ml # Voids 3 # Bowel Movements 1 General Appearance: Alert, Oriented X3 Lungs: Clear to auscultation Cardiovascular: Regular rate, Normal S1, Normal S2 Medications Current Medications Medications Dose Ordered Sig/Caio Route Start Time Stop Time Status Last Admin Dose Admin Aspirin 81 mg DAILY PO 04/06/25 10:00 04/07/25 09:56 81 MG Atorvastatin Calcium 20 mg HS PO 04/05/25 22:00 04/06/25 21:49 20 MG Hydralazine HCl 10 mg Q6HP PRN IV 04/05/25 16:45 Metoprolol Tartrate 25 mg BID PO 04/05/25 22:00 04/07/25 09:56 25 MG Famotidine 20 mg DAILY IV 04/06/25 10:00 04/07/25 09:58 20 MG Diagnostic Test (Pha) 1 strip ACHS 04/05/25 17:00 04/07/25 17:28 1 STRIP Insulin Human Regular ACHS SC 04/05/25 17:00 Dextrose 50 ml UD PRN IV 04/05/25 16:45 Sodium Chloride 10 ml Q8HR IV 04/05/25 22:00 04/07/25 13:31 10 ML Acetaminophen/ Hydrocodone Bitart 1 tab Q4HP PRN PO 04/05/25 16:45 04/06/25 07:35 1 TAB Ondansetron HCl 4 mg Q4HP PRN IV 04/05/25 16:45 Docusate Sodium 100 mg BIDPRN PRN PO 04/05/25 16:45 04/07/25 09:56 100 MG Acetaminophen 650 mg Q6HP PRN PO 04/05/25 16:45 04/06/25 23:47 650 MG Ceftriaxone Sodium 50 ml @ 100 mls/hr DAILY@09 IV 04/06/25 09:00 04/07/25 09:59 100 MLS/HR Nitroglycerin 0.4 mg Q5MINP PRN SL 04/05/25 17:45 Morphine Sulfate 2 mg Q30M PRN IV 04/05/25 17:45 Laboratory Results Laboratory Tests 04/06/25 06:40 Microbiology Microbiology Date/Time Source Procedure Growth Status 04/05/25 17:10 Blood Blood Culture - Preliminary NO GROWTH AFTER 48 HOURS OF INCUBATION. Resulted Assessment/Plan Assessment/Plan Chest pain of unknown etiology Generalized weakness Leukocytosis, unspecified Troponins negative obtain echo home medications monitor off abx Plan discussed with: Patient Date of Service: April 07, 2025 Billing Provider: HEAVENLY FRY MD Common Visit Codes: [id number] INP/OBS CARE(HIGH) HEAVENLY FRY MD April 07, 2025 17:41
--- NOTE | 2025-04-07 23:55 | DVHSR ---
APPROVED REPORT EXAM: Two-dimensional and M-mode echocardiogram with Doppler and color Doppler. Mitral Valve MitralMitral Stenosis E/A ratio0.02D MVAcm2 LEFT VENTRICLE The left ventricle is normal size. There is normal left ventricular wall thickness. The left ventricle is normal in structure and function. Left ventricle systolic function is normal. The Ejection Fraction is 55-60%. No regional wall motion abnormalities noted. RIGHT VENTRICLE The right ventricle is normal size. There is normal right ventricular wall thickness. The right ventricular systolic function is normal. ATRIA The left atrium size is normal. The right atrium size is normal. The interatrial septum is intact with no evidence for an atrial septal defect. MITRAL VALVE The mitral valve is normal in structure and function. There is no evidence of mitral valve prolapse. There is no mitral valve stenosis. There is no mitral valve regurgitation noted. PULMONIC VALVE The pulmonary valve is normal in structure and function. There is no pulmonic valvular regurgitation. There is no pulmonic valvular stenosis. TRICUSPID VALVE The tricuspid valve is normal in structure and function. There is no tricuspid valve regurgitation noted. There is no tricuspid valve prolapse or vegetation. There is no tricuspid valve stenosis. AORTIC VALVE The aortic valve is normal in structure and function. No aortic regurgitation is present. There is no aortic valvular stenosis. There is no aortic valvular vegetation. GREAT VESSELS The aortic root is normal in size. PERICARDIAL EFFUSION There is a no pericardial effusion. Conclusion There is normal left ventricular wall thickness. The left ventricle is normal in structure and function. Left ventricle systolic function is normal. The Ejection Fraction is 55-60%. There is no gross valvular pathology There is no pericardial effusion.
[2025-04-08] VITALS (8 sets, daily range): BP systolic 103–115; BP diastolic 64–77; PULSE 60–84; RESP 17–20; TEMP 97.7–99.3; O2SAT 94–98
--- NOTE | 2025-04-08 17:21 | DVHDS2 ---
Discharge Summary Date of Admission April 05, 2025 at 17:43 Date of Discharge: April 08, 2025 Labs/Diagnostic Data: Laboratory Results Test 04/08/25 16:20 04/06/25 06:40 04/05/25 13:59 POC Glucose 110 mg/dl (70-106) White Blood Count 10.4 10^3/uL (4.4-10.8) Red Blood Count 5.41 10^6/uL (4.5-5.90) Hemoglobin 16.7 g/dL (13.5-17.5) Hematocrit 49.3 % (41.0-53.0) Mean Corpuscular Volume 91.1 fL (80.0-100.0) Mean Corpuscular Hemoglobin 30.8 pg (28.0-32.0) Mean Corpuscular Hemoglobin Concent 33.8 g/dL (32.0-36.0) Red Cell Distribution Width 14.6 % (11.8-14.3) Platelet Count 273 10^3/uL (140-450) Mean Platelet Volume 7.7 fL (6.9-10.8) Neutrophils (%) (Auto) 76.5 % (37.0-80.0) Lymphocytes (%) (Auto) 16.3 % (10.0-50.0) Monocytes (%) (Auto) 6.4 % (0.0-12.0) Eosinophils (%) (Auto) 0.3 % (0.0-7.0) Basophils (%) (Auto) 0.5 % (0.0-2.0) Neutrophils # (Auto) 8.0 10 ^3/uL (1.6-8.6) Lymphocytes # (Auto) 1.7 10 ^3/uL (0.4-5.4) Monocytes # (Auto) 0.7 10 ^3/uL (0-1.3) Eosinophils # (Auto) 0 10 ^3/uL (0-0.8) Basophils # (Auto) 0.1 10 ^3/uL (0-0.2) Nucleated Red Blood Cells 0.1 % Sodium Level 138 mmol/L (136-145) Potassium Level 4.1 mmol/L (3.5-5.1) Chloride Level 104 mmol/L (98-107) Carbon Dioxide Level 26 mmol/L (20-31) Anion Gap 8 (5-15) Blood Urea Nitrogen 19 mg/dL (9-23) Creatinine 1.01 mg/dL (0.700-1.30) Glomerular Filtration Rate Calc 85 mL/min (>90) BUN/Creatinine Ratio 18.8 (10.0-20.0) Serum Glucose 92 mg/dL (74-106) Calcium Level 10.3 mg/dL (8.7-10.4) Total Bilirubin 0.8 mg/dL (0.2-1.0) Aspartate Amino Transferase (AST) 18 U/L (13-40) Alanine Aminotransferase (ALT) 32 U/L (7-40) Alkaline Phosphatase 128 U/L (46-116) Total Protein 7.6 g/dL (5.7-8.2) Albumin 4.8 g/dL (3.2-4.8) Troponin I High Sensitivity 3 ng/L (</=54) Other Laboratory Tests 04/06/25 06:40 Brief Hx & Hospital Course: The patient is a 60-year-old male with past medical history of hyperlipidemia, diabetes mellitus, and hypertension who presented to [facility] ED with complaint of chest pain and muscle pain intermittently for the past 6 months. Patient reports symptoms progressively get worse with radiating chest pain to the left shoulder, left hand, to his left leg, associated weakness, getting worse that prompted this visit. Patient was seen and evaluated in the ED, laboratory data shows WBC 14.4, platelets 302, sodium 141, potassium 4.1, BUN 19, creatinine 1.18, glucose 90, troponin < 3, blood pressure 96/82, heart rate 72, temperature 99.0 F, O2 saturation 96% on room air. Please see medication orders section in the computer. On my assessment, patient denied chest pain at this moment, no headache, no dizziness, no diaphoresis, no shortness of breaths, no nausea, no vomiting, no fever, no chills. Patient was admitted for further evaluation and medical management. Leukocytosis resolved chest pain non cardiac and echo was within normal most likely gastritis Condition at Discharge: Good Final Diagnosis/Problems List Non cardiac chest pain Gastritis Discharge Disposition: Home Discharge Instruct/Medications Diet: Regular Activity: No Restrictions, As Tolerated Follow Up/Referral: PCP in 7 days Medications: same home medications Discharge Statement: "Patient was advised to return to the ER or call 911 if any headaches, dizziness, shortness of breath, chest pain, abdominal pain, bleeding, fevers, or worsening of medical condition. Patient was counseled about treatment plan, medications, possible side effects, patientverbalized understanding. All questions were answered to the best of my ability. This discharge took greater then 30 minutes in planning, reviewing documentation, counseling the patient, and discussing with other team members." ASSESSMENT ASSESSMENT Assessment Non cardiac chest pain Gastritis Date of Service: April 08, 2025 Billing Provider: HEAVENLY FRY MD Common Visit Codes: [id number] DISCH DAY >30min HEAVENLY FRY MD April 08, 2025 17:21
== END 2025-04-08 21:05 | disposition home or self-care (01) | DRG 241 ==
LOC: ER 12:50 → OVERFLOW 17:43 → TELE-WESTW 04-06 23:16
PROVIDERS: ADMIT Hospitalist; ATTEND Hospitalist
DX: K29.70 Gastritis, unspecified, without bleeding (principal); D72.829 Elevated white blood cell count, unspecified; E11.9 Type 2 diabetes mellitus without complications; E78.5 Hyperlipidemia, unspecified; I10 Essential (primary) hypertension
CPT/HCPCS: 36415; 71045; 80048; 80053; 82962; 84484; 85025; 87040; 93005; 93352; G0378; J3490